=== PATIENT | male | born 1950 | race Caucasian/White ===

== ENCOUNTER → 2016-10-13 | Day surgery (SDC) | payer OTHER ==
[~2016-10-13] VITALS: Ht 182.9 cm; Wt 88.5 kg
[~2016-10-13] MED LIST: AUGMENTIN 875-1 EACH PO; GABAPENTIN400 M2 PO; JANUMET XR 50-1 EAC1 PO; LANSOPRAZOLE30 M2 PO; LOVASTATIN20 M1 PO; OXYCODONE HCL E20 MG PO
--- NOTE | 2016-10-13 17:12 | Operative Report ---
Operative/Inv Procedure Report Surgery Date: 10/13/16 Name of Procedure: Dorsal root ganglion stimulation trial Pre-Operative Diagnosis: Complex regional pain lower extremities Post-Operative Diagnosis: Complex regional pain lower extremities Estimated Blood Loss: scant Surgeon/Senior Revenue Accountant: KENDRA DE LUNA MD Anesthesia: moderate sedation Implants: Dorsal root ganglion stimulation leads (2) Operative/Procedure Note Note: After consent the patient was brought to the operating room and placed in the prone position. The sacral area and lumbar area were prepped and draped in the usual fashion. The procedure was performed under fluoroscopic guidance at all times. The area of needle insertions was infiltrated with 1% lidocaine. The L5 -S1 interlaminar space was accessed with a epidural needle guiding it from left side to right and a standard approach for dorsal root ganglion stimulation lead placement. The epidural space was accessed multiple times but difficulty in threading the introducer and lead into the epidural space adequately enough to guide it to the transforaminal area was encountered. Eventually, the L5-S1 and the L5 nerve root (dorsal root ganglion) could not be accessed adequately and the L4-5 level was chosen. The standard inferior and lateral placement of the left to right the L4-5 interlaminar space was accessed in the epidural space was entered. The sheath/introducer and lead rethreaded and guided into the transforaminal area and then out to the dorsal root ganglion. Several placements were necessary in order to obtain an adequate dorsal approach. Once the lead was in place and inferior and superior loop were made to anchor in the sheath and needle and stylette were removed. Next, the S1 level was imaged. The S1 neuroforamen was the target and the area overlying this was infiltrated with 1% lidocaine. An epidural needle was threaded into the S1 neural foramen. With difficulty, the introducer and lead was threaded into the S1 foramen. Once positioned, the introducer needle and stylette were removed and the lead left in place and the standard approach to S1 dorsal root ganglion stimulation. This lead was sutured to the skin using anchoring hardware. Dressings were applied to both leads and connected to the web applications programmer. Patient was then brought to the recovery area for dorsal root ganglion stimulation programming.
--- NOTE | 2016-10-13 22:08 | RADIOLOGY REPORT ---
EXAMINATION: XR LUMBOSACRAL SPINE CLINICAL INFORMATION: Spinal cord stimulator trial. COMPARISON: None TECHNIQUE: Multiple AP and lateral views of the lumbosacral spine were obtained as part of the placement of a spinal cord stimulator by Dr. Rodriguez. FLUOROSCOPY TIME: 25.8 minutes. DOSE AREA PRODUCT: 10.8 mGy-m\S\2 FINDINGS/IMPRESSION: 22 spot images demonstrate placement of spinal cord stimulator leads in the region of the L4-L5 left neural foramen and the left S1 foramen.
== END ==
LOC: STS 01:53
DX: G90.523 Complex regional pain syndrome I of lower limb, bilateral (principal); G60.3 Idiopathic progressive neuropathy; M54.16 Radiculopathy, lumbar region; E11.9 Type 2 diabetes mellitus without complications; Z79.84 Long term (current) use of oral hypoglycemic drugs; I10 Essential (primary) hypertension; K21.9 Gastro-esophageal reflux disease without esophagitis
CPT/HCPCS: 36415; 72100; C1778; J0131; J2250